=== PATIENT | male | born 1955 | race Caucasian/White ===

== ENCOUNTER 2019-04-15 05:50 | Inpatient (IN) | payer BC ==
[~2019-04-15] VITALS: Ht 182.9 cm; Wt 111.6 kg
[~2019-04-15 05:50] MED LIST: APIX5TAB4 PO; ASPI-1153 PO; COR3.125 PO; FLEC50TA2 PO; LIP20 PO; OMEP20CA11 PO
[2019-04-15] MEDS ORDERED: CEFAZOLIN SOD 1 GM in D5W 50 ML IV ONE (07:00)
[2019-04-15] MEDS ORDERED: POLYMYXIN 500,000/BACIT.10,000 UNITS in NS IRR 1 L IR ONE ×2 (08:47→11:31)
[2019-04-15] MEDS ORDERED: fentaNYL CITRATE/PF 100 MCG/2 ML AMP IVP PRN ×2 (09:00)
[2019-04-15] MEDS ORDERED: ONDANSETRON HCL 4 MG/2 ML VIAL IVP PRN ×2 (09:00→13:00)
[2019-04-15] MEDS ORDERED: CEFAZOLIN 1 GM IVPB PREMIX 50 ML IV ONE (11:30)
[2019-04-15] MEDS ORDERED: LR 1,000 ML IV SCH (12:03)
[2019-04-15] MEDS ORDERED: MEPERIDINE HCL/PF 25 MG/ML DISP.SYRIN IVP PRN (12:15)
[2019-04-15] MEDS ORDERED: HYDROmorphone 1 MG INJ. 1 MG/ML AMPUL IVP PRN ×2 (12:15→13:00)
[2019-04-15] MEDS ORDERED: HYDROmorphone 2 MG/ML VIAL IVP PRN ×2 (12:15)
[2019-04-15] MEDS ORDERED: CEFAZOLIN 1 GM IVPB PREMIX 50 ML IV SCH (13:00)
[2019-04-15] MEDS ORDERED: HYDROcodone/ACETAMIN 5-325 MG TAB (NORCO/ VICODIN) PO PRN (13:00)
[2019-04-15] MEDS ORDERED: ACETAMINOPHEN 325 MG TABLET PO PRN (13:00)
[2019-04-15] MEDS ORDERED: fentaNYL CITRATE/PF 100 MCG/2 ML AMP ONE (13:40)
[2019-04-15] MEDS ORDERED: NS 1000 ML IV.SOLN IV ONE (13:40)
[2019-04-15] MEDS ORDERED: LR 1,000 ML IV.SOLN IV ONE (13:40)
[2019-04-15] MEDS ORDERED: CEFAZOLIN 2 GM IVPB PREMIX 50 ML IV ONE (13:40)
[2019-04-15] MEDS ORDERED: MIDAZOLAM HCL 5 MG/ML VIAL (VERSED) IV ONE (13:40)
[2019-04-15] MEDS ORDERED: ROCURONIUM BROMIDE 10 MG/ML (ZEMURON) ONE (13:40)
[2019-04-15] MEDS ORDERED: DEXAMETHASONE SOD PHOSPHATE 4 MG/ML VIAL ONE (13:40)
[2019-04-15] MEDS ORDERED: ONDANSETRON HCL 4 MG/2 ML VIAL ONE (13:40)
[2019-04-15] MEDS ORDERED: SEVOFLURANE 15 MIN GAS INH ONE (13:40)
[2019-04-15] MEDS ORDERED: BUPIVACAINE LIPOSOME/PF 266 MG/20 ML VIAL INFIL ONE (13:40)
[2019-04-15] MEDS ORDERED: KETOROLAC TROMETHAMINE 30 MG VIAL ONE (13:40)
[2019-04-15] MEDS ORDERED: ROPIVACAINE HCL/PF 5 MG/ML 0.5% 30 ML VIAL ONE (13:40)
[2019-04-15] MEDS ORDERED: fentaNYL CITRATE 250 MCG/5 ML AMP ONE (13:40)
--- NOTE | 2019-04-15 14:30 | NUR ---
Patient received from PACU, alert and oriented x4, denies pain, s/p incarcerated hernia repair with mesh by Dr. Beltran, patient has surgical dressing to abdomen clean, dry and intact, x1 ORLIN drain with no drainage to suction, and abdominal binder in place, IV line is patent and infusing well, patient is on 3L O2 via nasal cannula O2 saturation is 98% at this time, patient has history of sleep apnea with CPAP at home, educated the patient and his on plan of care and call light system, they verbalized understanding, post op vital signs continuing, continuing to monitor, bed in lowest position, three side rails up, call light within reach, fall and aspiration precautions in place.
[2019-04-15 14:39] VITALS: BP_SYST 145
[2019-04-15] MEDS ORDERED: FLU VACC QS2019-20 36MOS UP/PF 60 MCG/0.5 ML SYRINGE I.M. PRN (15:00)
--- NOTE | 2019-04-15 15:20 | NUR ---
CONSULTATION PAGED/CALLED Reason for Consultation: MEDICAL MANAGEMENT Person Who was Notified: [place] Consulting Physician: Research [employer] Development Chemist Specialty: Ordering Physician:
[2019-04-15 16:00] VITALS: BP_SYST 135
[2019-04-15] MEDS: D5/0.45 NS 1,000 ML IV SCH ×2 (16:07→23:00)
--- NOTE | 2019-04-15 16:10 | NUR ---
RN rounds patient resting in bed, awake, denies pain, family is at bedside, educated the patient on new IVF and uses, he verbalized understanding, IV line is patent and infusing well, continuing to monitor, bed in lowest position, three side rails up, call light within reach, fall and aspiration precautions in place.
[2019-04-15 16:14] VITALS: BP_SYST 145
--- NOTE | 2019-04-15 17:48 | NUR ---
Paged Dr. Romero patient is requesting for CPAP at night, the patient normally uses CPAP at night at home.
--- NOTE | 2019-04-15 17:55 | NUR ---
FOLLOW UP CONS/PAGED
--- NOTE | 2019-04-15 17:59 | NUR ---
Spoke with Dr. Romero patient is okay to have CPAP at night, Dr. Romero to review patient's home medications.
--- NOTE | 2019-04-15 18:07 | NUR ---
Called RT spoke with Nuris to inform of CPAP orders for tonight.
--- NOTE | 2019-04-15 18:27 | NUR ---
Closing note patient resting in bed, family is at bedside, patient in stable condition, no signs of distress, all needs met, will endorse report to NOC shift nurse, patient bed in lowest position, three side rails up, call light within reach, fall and aspiration precautions in place.
[2019-04-15] MEDS: CEFAZOLIN 1 GM IVPB PREMIX 50 ML IV SCH (20:22)
--- NOTE | 2019-04-15 20:50 | NUR ---
COMPLETE PHYSICAL ASSESSMENT DONE. PT A/O X4. NO PAIN AT TIME TIME. CALL LIGHT AT BED SIDE AND BED SIDE RAILS UP X2. ENCOURAGED PT TO USE NURSING CALL LIGHT AND ENCOURAGED PT TO GET OUT OF BED AND AMBULATE.
[2019-04-15] MEDS: FAMOTIDINE PF 20 MG/2 ML VIAL IVP SCH (21:29)
[2019-04-15] MEDS: FLECAINIDE ACETATE 50 MG TABLET (TAMBOCOR) PO SCH (21:33)
[2019-04-15] MEDS: CARVEDILOL 3.125 MG TABLET (COREG) PO SCH (21:35)
[2019-04-15 23:36] VITALS: BP_SYST 119
--- NOTE | 2019-04-16 01:41 | NUR ---
Opening Note Received bedside SBAR report from carlita Rivas RN. Patient resting, in bed. No distress, nonlabored breathing on BIPAP. He reports he is comfortable and only requested another blanket, which was provided. Safety precautions in place. Call light w/in reach.
[2019-04-16] MEDS: D5/0.45 NS 1,000 ML IV SCH ×2 (03:43→15:47)
--- NOTE | 2019-04-16 03:43 | NUR ---
IVF / Antibiotic IVF fluids empty and hung new bag. Infusing as ordered at 100ml/hr. Administered due antibiotic and patient verbalized understanding.
[2019-04-16] MEDS: CEFAZOLIN 1 GM IVPB PREMIX 50 ML IV SCH (03:44)
--- NOTE | 2019-04-16 04:10 | NUR ---
OOB / Icentive spirometer Patient ambulated up out of bed and walked twenty feet in room, with use of walker. He denied dizziness and had steady gait. He transferred to bed A due to his bed does not have accessible bed controls. Reviewed and educated on use of incentive spirometer and he inspired 3000 ml. Patient stated abdominal pain is tolerable, and does not want pain medication. Patient resting in bed, bed is locked, bed alarm on and call light w/in reach.
--- NOTE | 2019-04-16 04:37 | NUR ---
Lab draw Product Marketing Analyst at bedside for blood draw, patient tolerated.
[2019-04-16 06:01] LABS: ALBUMIN 3.1 g/dL (3.4-4.8); CALCIUM 8.5 mg/dL (8.4-11.0); CREATININE 1.02 mg/dL (0.55-1.30); POTASSIUM 3.9 mmol/L (3.5-5.1); TOTAL BILIRUBIN 0.6 mg/dL (0.0-1.0)
[2019-04-16 06:14] LABS: HEMATOCRIT 43.1 % (36-54); HEMOGLOBIN 14.6 g/dL (14.0-18.0); MEAN CORPUSCULAR HEMOGLOBIN 30 pg (27-31); MEAN CORPUSCULAR HGB CONC 34 % (32-36); MEAN CORPUSCULAR VOLUME 89 fL (79.0-98.0); MONOCYTES # (AUTO) 0.9 K/uL (0.0-1.0); MONOCYTES % (AUTO) 6.5 % (1.7-9.3); NEUTROPHILS # (AUTO) 12.4 K/uL (1.8-7.7); NEUTROPHILS % (AUTO) 86.5 % (40.0-70.0); PLATELET COUNT (AUTO) 186 K/uL (130-430); RED BLOOD CELL COUNT(AUTO) 4.85 MIL/uL (4.2-6.2); RED CELL DISTRIBUTION WIDTH 13.5 % (9.0-15.0); WHITE BLOOD COUNT (AUTO) 14.3 K/uL (4.8-10.8)
--- NOTE | 2019-04-16 06:55 | NUR ---
closing note Patient resting in comfortable position, IVF infusing as ordered. needs met throughout shift. Will endorse care to day shift nurse.
--- NOTE | 2019-04-16 07:25 | NUR ---
AM ROUNDS: BEDSIDE REPORT GIVEN BY NIGHT NURSE SUZETTE.PATIENT LYING ON THE BED,AWAKE,ALERT AND ORIENTED X4. IVF ON GOING AT LEFT HAND INTACT. CPAP ON. MIDLINE SURGICAL INCISION ,DRESSING CLEAN AND DRY.WITH ABDOMINAL BINDER ON. RIGHT QUADRANT ORLIN DRAIN,SEROUS SANGUINOUS COLOR DISCHARGES IN MODERATE AMOUNT. CALL LIGHT WITH IN REACH. BED LOCKED AT LOWEST POSITION. NO ACUTE DISTRESS.
[2019-04-16 08:10] VITALS: BP_SYST 130
[2019-04-16] MEDS: FAMOTIDINE PF 20 MG/2 ML VIAL IVP SCH ×2 (08:43→20:14)
[2019-04-16] MEDS: ENOXAPARIN SODIUM 30 MG/0.3 ML SYRINGE SUBCUT SCH (08:46)
[2019-04-16] MEDS: CARVEDILOL 3.125 MG TABLET (COREG) PO SCH ×3 (09:02→20:13)
[2019-04-16] MEDS: ATORVASTATIN 20 MG TABLET PO SCH (09:02)
--- NOTE | 2019-04-16 09:02 | NUR ---
Med Pass: Patient took his medications well. No complications noted.
[2019-04-16] MEDS: PANTOPRAZOLE SODIUM 40 MG TAB PO SCH (09:03)
[2019-04-16] MEDS: FLECAINIDE ACETATE 50 MG TABLET (TAMBOCOR) PO SCH ×3 (09:04→20:13)
[2019-04-16 11:28] VITALS: BP_SYST 125; BP_SYST 133
--- NOTE | 2019-04-16 12:00 | NUR ---
Rn Rounds: Sitting on the chair. Family in the room. Denies any pain. Call light with in reach. Bed locked at lowest position.
--- NOTE | 2019-04-16 12:07 | NUR ---
OBSERVED USE OF IS WHILE SITTING IN CHAIR, UTILIZED PROPER TECHNIQUE, UP TO 2500 Ml
--- NOTE | 2019-04-16 13:55 | NUR ---
RN ROUNDS: SITTING ON THE CHAIR. DENIES ANY PAIN.NO DISTRESS.
[2019-04-16 15:34] VITALS: BP_SYST 139
--- NOTE | 2019-04-16 16:00 | NUR ---
RN ROUNDS: RESTING, NO ACUTE DISTRESS.
--- NOTE | 2019-04-16 18:26 | NUR ---
END OF SHIFT: PATIENT TOLERATED REGULAR DIET FOR DINNER. NO COMPLAINED OF PAIN. MIDLINE ABDOMINAL DRESSING CLEAN AND DRY,RIGHT ORLIN DRAIN HAS REDDISH COLOR DISCHARGES INTACT,IN MODERATION. CALL LIGHT WITH IN REACH. PATIENT SITTING COMFORTABLY IN THE CHAIR. PRACTICE GUIDELINES MED THROUGH OUT THE SHIFT.
--- NOTE | 2019-04-16 19:53 | NUR ---
Initial note: Received report from dayshift RN. Patient is awake in bed, no acute distress. Even and unlabored breathing on room air. IV site to left hand is patent and benign. Patient demonstrated correct usage of incentive spirometer, able to aspirate 2500 ML. Reinforced ORLIN drain care teaching, 10 ML red drainage emptied. Call light with patient. Safety, fall precautions in place. Will continue to monitor.
[2019-04-16] MEDS: HYDROcodone/ACETAMIN 5-325 MG TAB (NORCO/ VICODIN) PO PRN (20:14)
--- NOTE | 2019-04-16 20:16 | NUR ---
Pain: Patient is complaining of abdominal pain 5/10. Administered [place] 5-325 x2 tabs as indicated per MD order. Education provided regarding indications and side effects, patient verbalized understanding. Call light is with patient. Will continue to monitor.
[2019-04-16 20:26] VITALS: BP_SYST 138
--- NOTE | 2019-04-16 23:37 | NUR ---
Rounds: Patient is awake watching TV. Does not show any acute distress. Tolerating room air. IV site is patent and benign. Call light with patient. Will continue to monitor.
[2019-04-17 00:41] VITALS: BP_SYST 122
--- NOTE | 2019-04-17 02:33 | NUR ---
Rounds: Patient is resting in bed. No acute distress noted. CPAP in place, even and unlabored breathing. IV fluids infusing as ordered. Call light is with patient. Safety and fall precautions in place. Will continue monitoring.
[2019-04-17] MEDS: HYDROcodone/ACETAMIN 5-325 MG TAB (NORCO/ VICODIN) PO PRN (05:29)
[2019-04-17] MEDS: D5/0.45 NS 1,000 ML IV SCH (05:30)
--- NOTE | 2019-04-17 05:31 | NUR ---
Pain: Patient is complaining of abdominal pain 6/10. Administered [place] 5-325 x2 tabs as indicated per MD order. Education provided regarding indications and side effects, patient verbalized understanding. Call light is with patient. Will continue to monitor.
--- NOTE | 2019-04-17 06:50 | NUR ---
Closing note: Patient is sleeping in bed, no acute distress. Even and unlabored breathing on CPAP, tolerating well. IV fluids infusing as ordered to left hand. All needs met. Safety and fall precautions observed. Hourly rounding performed throughout shift. Will endorse care to dayshift RN.
--- NOTE | 2019-04-17 07:40 | NUR ---
OPENING NOTE RECEIVED PATIENT RESTING IN BED. STABLE. A/OX4. CONT ON CPAP AT THIS TIME; BRETT WELL WITH NO ACUTE DISTRESS AND NO SOB. RESPIRATION EVEN AND UNLABORED. SKIN WARM AND DRY TO TOUCH. IV INTACT AND PATENT; BRETT IVF. ORLIN DRAIN NOTED TO ABDOMEN WITH ABOUT 5CC OF REDDISH DRAINAGE NOTED. DISCUSSED PLAN OF CARE; PT VERBALIZED UNDERSTANDING. ALL NEEDS MET. BED IN LOW AND LOCKED POSITION. SIDERAIL UPX3. REFUSE BED ALARM. CALL LIGHT IN REACH .CONT TO MONITOR
[2019-04-17 08:00] VITALS: BP_SYST 111
[2019-04-17] MEDS: PANTOPRAZOLE SODIUM 40 MG TAB PO SCH (08:24)
[2019-04-17] MEDS: ATORVASTATIN 20 MG TABLET PO SCH (08:24)
[2019-04-17] MEDS: FAMOTIDINE PF 20 MG/2 ML VIAL IVP SCH (08:24)
[2019-04-17] MEDS: CARVEDILOL 3.125 MG TABLET (COREG) PO SCH (08:25)
[2019-04-17] MEDS: FLECAINIDE ACETATE 50 MG TABLET (TAMBOCOR) PO SCH (08:26)
[2019-04-17] MEDS: ENOXAPARIN SODIUM 30 MG/0.3 ML SYRINGE SUBCUT SCH (08:27)
--- NOTE | 2019-04-17 08:40 | NUR ---
MEDS ALL DUE MEDS ADMINISTERED, BRETT WELL. TEACHING DONE ON MEDICATION AND ASE. PATIENT DEMONSTRATED INCENTIVE SPIROMETER USE AND DID ABOUT 2500CC; TEACHING DONE AND PT VERBALIZED UNDERSTANDING. PATIENT AMBULATING WITH FWW WITH SLOW STEADY GAIT.
--- NOTE | 2019-04-17 08:56 | NUR ---
Nutrition Update [place] Scale 18 noted. Pt admitted for encounter for general adult medical exam without abnormal. Diet: regular BMI: 33.4 kg/m2 RD to follow per nutrition care standards.
--- NOTE | 2019-04-17 10:58 | NUR ---
NOTE PATIENT STABLE. SITTING UP IN BED. , DAUGHTER AND BROTHER IN LAW AT BEDSIDE. REMINDED PATIENT OF INCENTIVE SPIROMETER USE 10X/HR EVERY HOUR; PT VERBALIZED UNDERSTANDING. ALL NEEDS MET. CONT TO MONITOR
[2019-04-17 11:21] VITALS: BP_SYST 125
--- NOTE | 2019-04-17 13:35 | NUR ---
SEEN AND EXAMINED BY . REPORTED TO MD PATIENT HAS A TEMP OF 99.1 AT THIS TIME. PER MD OKAY TO DISCHARGE PATIENT WITH TEMP 99.1
[2019-04-17 13:40] VITALS: BP_SYST 125
--- NOTE | 2019-04-17 14:20 | NUR ---
D/C Patient Patient given medication reconciliation form and D/C instructions. Exit Care provided. Patient verbalized understanding. MD discussed with patient the results and treatment provided. Ambulatory with steady gait for discharge to home. Patient in stable condition, ID band removed. IV catheter removed, intact and dressing applied, no active bleeding. Teaching done on ORLIN-Drain care; patient and verbalized understanding. Patient educated on pain management. All belongings sent with patient.
== END 2019-04-17 14:15 | disposition home or self-care (01) | DRG 336 ==
LOC: SMU 05:50
PROVIDERS: ADMIT Colon & Rectal Surgery; ATTEND Colon & Rectal Surgery
PROC: 0DNU0ZZ Release Omentum, Open Approach (ICD-10-PCS; 2019-04-15)
PROC: 0KQL0ZZ Repair Left Abdomen Muscle, Open Approach (ICD-10-PCS; 2019-04-15)
PROC: 0KQK0ZZ Repair Right Abdomen Muscle, Open Approach (ICD-10-PCS; 2019-04-15)
PROC: 0WQF0ZZ Repair Abdominal Wall, Open Approach (ICD-10-PCS; principal; 2019-04-15 10:15)
DX: K43.6 Other and unspecified ventral hernia with obstruction, without gangrene (principal); E44.1 Mild protein-calorie malnutrition; K66.0 Peritoneal adhesions (postprocedural) (postinfection); I25.10 Atherosclerotic heart disease of native coronary artery without angina pectoris; I10 Essential (primary) hypertension; K21.9 Gastro-esophageal reflux disease without esophagitis; E78.5 Hyperlipidemia, unspecified; E05.90 Thyrotoxicosis, unspecified without thyrotoxic crisis or storm; E66.9 Obesity, unspecified; I48.0 Paroxysmal atrial fibrillation; M62.08 Separation of muscle (nontraumatic), other site; Z95.1 Presence of aortocoronary bypass graft; Z87.891 Personal history of nicotine dependence; Z83.71 Family history of colonic polyps; Z79.899 Other long term (current) drug therapy; Z79.82 Long term (current) use of aspirin; I25.2 Old myocardial infarction
CPT/HCPCS: 36415; 80053; 85025; 87081; 94660; 97161-GP; C1781; C9290; J0690; J1100; J1650; J1885; J2250; J2405; J3010; J3490; J7030; J7060; J7120